=== PATIENT | female | born 1970 | race Caucasian/White ===

== ENCOUNTER 2024-12-22 15:22 | Emergency (ER) | payer OTHER, SELFPAY ==
[2024-12-22 15:38] VITALS: BP 117/78; PULSE 67; RESP 16; TEMP 36.1; O2SAT 98; BMI 28.6
[2024-12-22 16:55] LABS: Appearance Urine Clear (Clear); Bilirubin Urine Negative (Negative); Blood Urine Negative (Negative); Color Urine Light yellow (Yellow); Glucose Urine Negative (Negative); Ketones Urine Negative (Negative); Leukocyte Esterase Urine Negative (Negative); Nitrite Urine Negative (Negative); Protein Urine Negative (Negative); Urobilinogen Urine 0.2 (0.2-1.0)
[2024-12-22 17:03] LABS: RBC Urine 0-2 (0-2); WBC Urine 0-2 (0-5)
[2024-12-22 18:47] VITALS: BP 97/73; PULSE 62; RESP 16; O2SAT 97
--- NOTE | 2024-12-22 18:58 | CT_ITS ---
Patient: ASAEL SIBLEY Facility:?[facility] RIS Patient ID:?[id number] Site Patient ID:?[id number]. Site :?[id number] Study:?CT-Abdomen/Pelvis 81CC ISOVUE 370-12/22/2024 8:39:07 PM Ordering Physician:Nasreen Abernathy Final Report: Indication: Right lower quadrant pain Technique: CT through the abdomen and pelvis following 81 mL Isovue 370 IV contrast Comparison: None Findings: Lower chest: No acute abnormality appreciated. Hepatobiliary: No significant parenchymal abnormality is appreciated. Cholecystectomy. Spleen: Unremarkable. Pancreas: No acute abnormality appreciated. Adrenal glands: No acute abnormality appreciated. Kidneys: No significant parenchymal abnormality appreciated. No visualized calculi. No hydronephrosis. Bowel: No obstruction. No focal perienteric or pericolonic stranding is appreciated. The appendix is visualized and appears unremarkable. Vascular: No acute abnormality appreciated. Mild atherosclerosis. Lymph nodes: No gross lymphadenopathy. Peritoneum: No free air. No free fluid. : No acute abnormality appreciated. Soft tissues: No acute abnormality appreciated. Bones: No acute fracture. No lytic or blastic lesion. Mild spondylosis. Impression: No acute abnormality appreciated. Specifically, the appendix is visualized and appears unremarkable. Please note that all CT scans at this facility use dose modulation, iterative reconstruction, and/or weight-based dosing when appropriate to reduce radiation dose to as low as reasonably achievable. Dictated by Sylvester Seo MD @ 12/22/2024 9:11:11 PM Signed by:?Sylvester Seo MD @12/22/2024 9:11:11 PM (Electronic Signature)
[2024-12-22 19:18] LABS: Creatinine, Point-of-Care* 0.8 mg/dl (0.6-1.3)
[2024-12-22 19:22] LABS: Basophils Absolute Auto 0.04 K/uL (0.00-0.30); Basophils Percent Auto 0.4 % (0.0-3.0); Eosinophils Absolute Auto 0.17 K/uL (0.00-0.50); Eosinophils Percent Auto 1.6 % (0.0-7.0); Hematocrit 40.2 % (33.0-51.0); Hemoglobin* 13.7 gm/dL (12.0-16.0); Immature Granulocytes Abs Auto 0.05 K/uL (0.00-0.30); Immature Granulocytes Pct Auto 0.5 %; Lymphocytes Absolute Auto 2.81 K/uL (0.90-2.90); Lymphocytes Percent Auto 27.2 % (20-44); Mean Corpuscular HGB Conc 34 gm/dL (32-36); Mean Corpuscular Hemoglobin 31 pg (26-34); Mean Corpuscular Volume 91 fL (80-100); Monocytes Percent Auto 6.4 % (0.0-11.0); Neutrophils Percent Auto 63.9 % (42.0-72.0); Platelet Count* 236 K/uL (140-440); RDW Coefficient of Variation % 12.9 % (11.5-15.5); Red Blood Count 4.43 m/uL (4.00-5.20); White Blood Count* 10.33 K/uL (4.50-11.00)
[2024-12-22 19:23] LABS: Slide Review Reflex No
--- OUTSIDE RECORDS SUMMARY | 2024-12-22 19:37 | XMS_ITS | Data Portability ---
Author Organization [facility] Address [address] [place] [phone] Assessment No assessment recorded. Plan of Treatment Reminders Order Date Submit Date Provider Last Modified By Organization Details Last Modified Time Details Appointments None recorded. Lab None recorded. Referral None recorded. Procedures None recorded. Surgeries None recorded. Imaging None recorded. Medication Orders Augmentin 875 mg-125 mg tablet 2020 021 [id number], [address], [phone], 10:34:42 Patient TargetsNo targets recorded. Patient InstructionsNo instructions recorded. Reason for Referral None Reported. Results Created Date Observation Date Name Description Value Unit Range Abnormal Flag Note LastModifiedBy Organization Detail LastModifiedTime Result Notes None recorded. Procedures Surgical History Date Name Laterality Status Provider Name and Address Organization Details Recorded Time 09/02/19 21 laparoscopic cholecystectomy completed Elana Landin [facility] 09/14/2020 10:17:54 Imaging Results None recorded. Procedure Notes None recorded. Medical Equipment None Reported. Allergies No known drug allergies Medications Name Sig Start Date Stop Date Status Note LastModified by Organization Details LastModified Time amoxicillin 500 mg capsule 08/22 completed Not Available Not Available Not Available ibuprofen 800 mg tablet Take 1 tablet 3 times a day by oral route. active Not Available Not Available No t Available hydrocodone 5 mg-acetamin ophen 325 mg tablet TAKE 1 TO 2 TABLETS BY MOUTH EVERY 6 HOURS NEEDED FOR PAIN active Not Available Not Available No t Available penicillin V potassium 500 mg tablet TAKE 1 TABLET BY MOUTH 4 TIMES DAILY FOR 10 DAYS 08/22 completed Not Available Not Available Not Available ondansetron 8 mg disintegrat ing tablet DISSOLVE 1 TABLET IN MOUTH TWICE DAILY 08/22 completed Not Available Not Available Not Available hydrocodone 7.5 mg-acetamin ophen 325 mg tablet TAKE 1 TABLET BY MOUTH EVERY 6 HOURS FOR 3 DAYS NEEDED FOR PAIN 08/22 completed Not Available Not Available Not Available ondansetron 4 mg disintegrat ing tablet DISSOLVE 1 TABLET ON THE TONGUE EVERY 6 HOURS NEEDED active Not Available Not Available No t Available amoxicillin 875 mg-potassiu m clavulanate 125 mg tablet TAKE 1 TABLET BY MOUTH EVERY 12 HOURS FOR 10 DAYS active Not Available Not Available No t Available Vitals Date Recorded Body height Heart rate Respiratory rate Body temperature Oxygen saturation Oxygen saturation in Arterial blood by Pulse oximetry Systolic blood pressure Diastolic blood pressure Provider Name and Address Organization Details Last Updated DateTime 1 162.56 cm 88 /min 18 /min 97.2 [degF] 98 % 98 % 106 mm[Hg] 70 mm[Hg] Elana Landin [facility] 1 11:52:23 Date Recorded Body height Body mass index (BMI) Body weight Heart rate Respiratory rate Body temperature Oxygen saturation Oxygen saturation in Arterial blood by Pulse oximetry Systolic blood pressure Diastolic blood pressure Provider Name and Address Organization Details Last Updated DateTime 1 162.56 cm 28.3 kg/m2 10026.7 4 g 87 /min 16 /min 97.2 [degF] 97 % 97 % 128 mm[Hg] 74 mm[Hg] Elana Landin [facility] 1 10:21:08 Social History Question Answer Notes LastModified by Organizat ion Details LastModified Time Tobacco Smoking Status Current Every Day Smoker Elana Landin [facility] 08/22/2020 11:59:12 Hard Of Hearing Or Deaf In One Or Both Ears? No [email or web address] Information not available 08/22/2020 Legally Blind In One Or Both Eyes? No [email or web address] Information not available 08/22/2020 Live Alone Or With Others? With Others [email or web address] Information not available 08/22/2020 How Many Children Do You Have? 4 [email or web address] Information not available 08/22/2020 How Much Tobacco Do You Smoke? 1 PPD [email or web address] Information not available 08/22/2020 How Many Years Have You Smoked Tobacco? 37 Information not available 08/22/2020 Sex: Unknown Functional Status Question Answer Note LastModified by Organization D etails LastModified Time What is your level of alcohol consumption? None [email or web address] Information not available 08/22/2020 Are you able to walk? YESWOREST [email or web address] Information not available 08/22/2020 Are you able to care for yourself? Yes [email or web address] Information not available 08/22/2020 Mental Status None recorded. Family History Relationship Description Onset Age of this Age Resolved Age Notes LastModified by Organization Details LastModified Time Brother Diabetes mellitus [email or web address] Not available 2020 11:58:58 Mother Diabetes mellitus Not available 2020 11:58:58 Father Diabetes mellitus Not available 2020 11:58:58 Medical History No medical history recorded. Gynecological HistoryNo gynecological history recorded. Obstetrics History GPAL:G 0 P 0 0 0 0 Past Encounters Encounter ID Performer Location Encounter Start Date Encounter Closed Date Diagnosis/Indication Diagnosis SNOMED-CT Code Diagnosis ICD10 Code Diagnosis Note [id number] MD GABRIEL Andrade MD, GENERAL SURGERY [address] [place] [phone] 08/22/2020 11:06:28 08/22/2020 12:37:18 Cholelithiasis without obstruction 21443291 K80.20 I have recommende d laparoscop ic cholecyste ctomy to the patient. I do feel that her symptoms are typical of biliary colic. She would like to proceed, and [id number] MD GABRIEL Andrade MD, GENERAL SURGERY [address] [place] [phone] 09/14/2020 10:09:31 09/14/2020 10:38:55 Dental abscess [id number] K04.7 Cholelithi asis without obstruction [id number] K80.20 Patient is recovering well after laparoscop ic cholecyste ctomy. I will plan to see her back as needed for now. Health Concerns Section Related Observation LastModified by Organization Detai ls LastModified Time None Recorded Concern Status LastModified by Organization Details LastModified Time None Recorded Advance Directives Directive None Recorded Payers Insurance Date Sequence Insurance Name Policy Number Policy Euceda Covered Member ID Euceda Member ID Guarantor Name 09/11/2020 1 [place] ([facility]) [id number] Humza Perkins [id number] Perkins Notes Date Note Type Note Provider Name and Address Organization Details Recorded Time 08/22/2020 text/html the patient presents today for consideration of laparoscopic cholecystectomy. She says that she has been having near daily right upper quadrant pain. She says pain is usually brought on by eating. She has tried water diet, but this is not helping enough. She feels very bloated and full after eating. She did have CT a couple of years ago which showed gallstones. Gabriel Whitman MD [address] [place] [address], [phone] 11/23/2020 09:43:40 09/14/2020 text/html patient returns today in follow-up after recent laparoscopic cholecystectomy. She has no complaints related to the procedure and says that she could tell in almost immediate improvement in her abdominal symptoms. Her only complaint today is related to a dental abscess which she has associated with the broken 2 in the right upper central incisor location. She has been unable to get in with her dentist. Gabriel Whitman MD [address] [place] [address], [phone] 09/14/2020 16:26:55 OBGyn Episode No OBEpisode recorded.
--- OUTSIDE RECORDS SUMMARY | 2024-12-22 19:38 | XMS_ITS | Clinical Summary ---
Author Organization [facility] Address [address] [place] [address] Care Team Providers Care Room Attendant Name Role Phone None Reported, Pcp Primary Care Provider Unavail able Source Comments Patient records contain information from all sites at [facility]. For routine questions regarding patient records, call [phone] during business hours, M-F 8:00 AM - 5:00 PM Central Time. Record requests for emergency care only can be directed to [phone] at any time.[facility] Allergies No known active allergies Medications medical cannabis solution Take 1 each by mouth. Pt smokes medical marijuana Active Social History Tobacco Use Types Packs/Day Years Used Date Smoking Tobacco: Every Day Cigarettes Smokeless Tobacco: Never Tobacco Cessation:Ready to Q uit: Not Asked; Counseling Given: Yes Alcohol Use Standard Drinks/Week Comments Not Currently 0 (1 standard drink = 0.6 oz pur e alcohol) Comments No Sex and Gender Information Value Date Recorded Sex Assigned at Not on file Legal Sex Female 12:22 AM CDT Gender Identity Not on file Sexual Orientation Not on file Last Filed Vital Signs Vital Sign Reading Time Taken Comments Blood Pressure 116/77 08/25/2024 3:45 PM [employer]UMENT [employer]INE[employer] Pulse 56 08/25/2024 3:15 PM [employer]UMENT ENGINE[employer] Temperature 36.4 C (97.5 F) 08/25/2024 2:27 PM [employer]STRUMENT ENGINEER Respiratory Rate 20 08/25/2024 2:27 PM [employer]STRUMENT ENGINEER Oxygen Saturation 100% 08/25/2024 3:15 PM [employer] INSTRUMENT ENGINEER Inhaled Oxygen Concentration - - Weight 76.4 kg (168 lb 6.9 oz) 08/25/2024 2:29 P M [employer]STRUMENT ENGINEER Height - - Body Mass Index - - Plan of Treatment Health Maintenance Due Date Last Done Comments CT Colonography 1969 Cervical/Vaginal Cancer Screening 1970 Cologuard 1970 Colonoscopy 1969 Colorectal Cancer Screening 1969 FIT 1970 HIV Screening 1970 Hepatitis C Screening 1970 Lipid (Cholesterol) Screening 1969 Mammogram 1969 DTaP,Tdap,and Td Vaccines (1 - Tdap) 1988 Hepatitis B Vaccines (1 of 3 - 19+ 3-dose series) 1988 Pneumococcal vaccine (50+ years) (1 of 2 - PCV) 1988 Zoster Vaccines (1 of 2) 09/10/2019 COVID-19 Vaccine (1 - 2023-25 season) 2024 Influenza Vaccine (#1) 2024 Depression Screening (Annual PHQ-2) 06/30/2024 Tobacco Cessation counseling 07/16/2025 07/16/2024 Fasting Glucose for Diabetes Screening 07/20/2027 07/20/2024, 07/08/2024, 04/28/2024, Additional history exists IPV Vaccines Aged Out No longer eligi ble based on patient's age to complete this topic Procedures Procedure Name Priority Date/Time Associated Diagnosis Comments COMPREHENSIVE METABOLIC PANEL, S/P Routine 07/20/2024 8:39 AM ELECTRICAL AND INSTRUMENT ENGINEER Abdominal Pain from Last 3 Months or Most Recently Relevant to Health Maintenance Results * (ABNORMAL) Comprehensive Metabolic Panel (07/20/2024 8:39 AM ELECTRICAL AND INSTRUMENT ENGINEER) Potassium, P 4.5 3.6 - 5.2 mmol/L 07/20/2024 9:03 AM [employer]LECT[employer]ICAL [employer]STRUMENT ENGINE[employer] [facility] Sodium, P 141 135 - 145 mmol/L 07/20/2024 9:03 AM [employer]LECT[employer]STRUMENT ENG[employer] [facility] Chloride, P 106 98 - 107 mmol/L 07/20/2024 9:03 AM [employer]STRUMENT [employer] [facility] Bicarbonate, P 27 22 - 29 mmol/L 07/20/2024 9:03 AM ELECTRICAL AND INSTRUMENT ENGINE[employer] [facility] Anion Gap, P 8 7 - 15 07/20/2024 9:03 AM [employer] AND INSTRUMENT [employer] [facility] BUN (Blood Urea Nitrogen), P 11 6 - 21 mg/dL 07/20/2024 9:03 AM ELECT[employer] AND INSTRUMENT [employer] [facility] Creatinine 0.87 0.59 - 1.04 mg/dL 07/20/2024 9:03 AM [employer]LECT[employer] AND INSTRUMENT [employer] [facility] Estimated GFR (eGFR) 79 >=60 mL/min/BS A 07/20/2024 9:03 AM ELECT[employer]ICAL AND INSTRUMENT ENGINE[employer] [facility] Comment: Estimated GFR calculated using the 2020 CKD_EPI creatinine equation. Calcium, Total, P 9.5 8.6 - 10.0 mg/dL 07/20/2024 9:03 AM ELECT[employer] INSTRUMENT [employer] [facility] Glucose, P 100 70 - 140 mg/dL 07/20/2024 9:03 AM ELECTRICAL AND INSTRUMENT ENGINE[employer] [facility] Protein, Total, P 7.5 6.3 - 7.9 g/dL 07/20/2024 9:03 AM ELECT[employer]ICAL AND INSTRUMENT ENG[employer] [facility] Albumin, P 4.2 3.5 - 5.0 g/dL 07/20/2024 9:03 AM ELECT[employer]ICAL AND INSTRUMENT ENGINE[employer] [facility] Aspartate Aminotransferase (AST), P 40 8 - 43 U/L 07/20/2024 9:03 AM ELECTRICAL AND INSTRUMENT ENGINE[employer] [facility] Alkaline Phosphatase, P 88 35 - 104 U/L 07/20/2024 9:03 AM ELECT[employer] AND INSTRUMENT ENGINE[employer] [facility] Alanine Aminotransferase (ALT), P 50(H) 7 - 45 U/L 07/20/2024 9:03 AM ELECT[employer]ICAL AND INSTRUMENT ENGINE[employer] [facility] Bilirubin, Total, P 0.4 0.0 - 1.2 mg/dL 07/20/2024 9:03 AM ELECTRICAL AND INSTRUMENT ENGINE[employer] [facility] Blood (Blood, Venous) 07/20/2024 8:39 AM ELECTRICAL AND INSTRUMENT ENGINEER 07/20/2024 8:39 AM ELECTRICAL AND INSTRUMENT ENGINEER Brayan Calzada M.D. LAB BLOOD ADD-ON Fi nal Result [facility] [address] [place] [id number], [facility] [place] [address] [place] [id number] from Last 3 Months or Most Recently Relevant to Health Maintenance Insurance [employer] Care Teams Room Attendant Relationship Specialty Start Date End Date None Reported, Pcp PCP - General 05/07/24
[2024-12-22 19:40] LABS: Albumin* 4.1 g/dL (3.3-5.0); Chloride* 105 mmol/L (96-114); Sodium* 138 mmol/L (135-149)
[2024-12-22 19:43] LABS: Alanine Aminotransferase* 43 U/L (4-35); Alkaline Phosphatase* 63 U/L (40-150); Anion Gap 6 mEq/L (7-15); Aspartate Amino Transferase* 32 U/L (12-35); Bilirubin Total* 0.4 mg/dL (0.1-1.5); Blood Urea Nitrogen* 11 mg/dL (7-30); Carbon Dioxide* 27 mmol/L (20-32); Creatinine* 0.7 mg/dL (0.5-1.5); Est. Creatinine Clearance* 78.41; Estimated Glomerular Filt Rate 102 ml/min; Lipase* 131 U/L (23-300)
[2024-12-22 19:44] LABS: Calcium* 9.3 mg/dL (8.4-10.6); Glucose* 85 mg/dL (60-115)
[2024-12-22 20:01] LABS: Troponin I* < 0.01 ng/mL (0.01-0.04)
[2024-12-22 20:23] LABS: PCR FLU A Negative PCR FLU A (Negative); PCR FLU B Negative PCR FLU B (Negative); PCR RSV Negative PCR RSV (Negative); SARS PCR* Negative SARS-CoV-2 (Negative)
--- NOTE | 2024-12-22 20:49 | ED.ABDPAIN ---
HPI - Abdominal Pain General Date Seen: 12/22/24 Chief Complaint: Abdominal Pain Stated Complaint: R side abdominal pain Time Seen by Provider: 12/22/24 17:41 Source: patient Mode of arrival: ambulatory Limitations: no limitations History of Present Illness HPI narrative: Patient is a 54-year-old female presenting to the emergency department for right-sided abdominal pain. Symptoms have been on and for the past month. States there is some pressure to right abdomen. Initially seem to be in the right upper quadrant but now seems worse in the right lower quadrant. Denies any pain at this time but feels like her abdomen is full of water. States this sensation comes and goes. Has been having and some hot flashes but has not had any objective fevers. Has had multiple previous abdominal surgeries. Has been having normal bowel movements today and been passing gas. Has not had any diarrhea. Denies any nausea or vomiting. Denies any dysuria. Has been seeing her primary care provider for generalized abdominal pain for few months now and has been told she may need to follow-up with GI. Was also having some chest pain and shortness of breath when the pain was at its worst. Currently is not having any chest pain or shortness of breath. No other concerns noted Related Data Home Medications ?Medication ?Instructions ?Recorded ?Confirmed No Known Home Medications 12/22/24 12/22/24 Allergies Allergy/AdvReac Type Severity Reaction Status Date / Time No Known Drug Allergies Allergy Verified 12/22/24 15:38 Review of Systems Status of ROS Reports: 10 or more systems reviewed and unremarkable except as noted in History and below [facility] Social History Smoking Status: Never smoker How often do you have a drink containing alcohol: never AUDIT-C Alcohol total score: 0 Non-prescribed substance use: marijuana (any form) Non-prescribed substance use details: medical marijuana use Exam Narrative: Exam Narrative: Const: Well-nourished, Well-developed, in mild distress Eyes: PERRL, no conjunctival injection, and symmetrical lids HENT: Atraumatic external nose and ears. Moist mucous membranes. Neck: Symmetric, trachea midline, No thyromegaly. CVS: RRR, No murmurs or gallops. Peripheral pulses 2+ and equal in all extremities RESP: Unlabored respiratory effort. Clear to auscultation bilaterally. GI: Nontender/Nondistended, No rebound or guarding. MSK:Extremities w/o deformity, Normal Active ROM Skin: Warm, Dry. No rashes or lesions. Neuro: Normal Muscle tone, No focal neurological deficits. Psych: Awake, Alert, & Oriented x3. Appropriate mood and affect. Const: Vital Signs, click to edit/add: Vital Signs - 24 hr 12/22/24 15:38 12/22/24 18:47 Temperature 96.9 F L Pulse Rate [Pulse Oximeter] 67 62 Respiratory Rate 16 16 Blood Pressure [[facility] Upper Arm] 117/78 97/73 Pulse Oximetry 98 97 Oxygen Delivery Me thod Room Air Room Air Course Vital Signs Vital signs: Initial Vital Signs Temperature 96.9 F L 12/22/24 15:38 Temperature Source Temporal Artery Scan 12/22/24 15:38 Pulse Rate 67 12/22/24 15:38 Pulse Rhythm Regular 12/22/24 15:38 Respiratory Rate 16 12/22/24 15:38 Blood Pressure 117/78 12/22/24 15:38 Blood Pressure Mean 91 12/22/24 15:38 Blood Pressure Position Sitting 12/22/24 15:38 Pulse Oximetry 98 12/22/24 15:38 Oxygen Delivery Method Room Air 12/22/24 15:38 Vital Signs Temperature 96.9 F L 12/22/24 15:38 Pulse Rate 67 12/22/24 15:38 Respiratory Rate 16 12/22/24 15:38 Blood Pressure 117/78 12/22/24 15:38 Pulse Oximetry 98 12/22/24 15:38 Oxygen Delivery Method Room Air 12/22/24 15:38 Temperature 96.9 F L 12/22/24 15:38 Pulse Rate 62 12/22/24 18:47 Respiratory Rate 16 12/22/24 18:47 Blood Pressure 97/73 12/22/24 18:47 Pulse Oximetry 97 12/22/24 18:47 Oxygen Delivery Method Room Air 12/22/24 18:47 MDM - Abdominal Pain MDM Narrative Medical decision making narrative: Patient is 54-year-old female presenting for abdominal pain. Is currently asymptomatic but not feeling well overall. Will do a broad workup including CBC, CMP, lipase, COVID/flu/RSV and a CT scan with IV contrast to better evaluate all her possible issues. With the symptoms this could be an uncommon presentation of coronary artery disease I will order an EKG and troponin also. Has had multiple surgeries so I am concerning SBO but seems less likely considering she is not having any constipation. Will check a lipase for signs of pancreatitis. Lab work all returned showing no acute concerning abnormalities. EKG shows no acute concerning findings. Troponin within normal limits and considering length the symptoms do not believe repeat troponin is necessary. CT scan read was delayed due to issues with the client server developer that was knocked out by weather. Eventually were able to get the CT scan results and shows no acute concerning abnormalities. Patient continues to be stable and will be discharged. Lab Data Labs: Lab Results 12/22/24 12/22/24 12/22/24 Range/Units 18:58 19:10 Unknown WBC 10.33 (4.50-11.00) K/uL RBC 4.43 (4.00-5.20) m/uL Hgb 13.7 (12.0-16.0) gm/dL Hct 40.2 (33.0-51.0) % MCV 91 (80-100) fL MCH 31 (26-34) pg MCHC 34 (32-36) gm/dL RDW Coeff of Rob 12.9 (11.5-15.5) % Plt Count 236 (140-440) K/uL Neut % (Auto) 63.9 (42.0-72.0) % Lymph % (Auto) 27.2 (20-44) % Bleck[place] % (Auto) 6.4 (0.0-11.0) % Eos % (Auto) 1.6 (0.0-7.0) % Baso % (Auto) 0.4 (0.0-3.0) % Neut # (Auto) 6.60 (1.7-7.0) K/uL Lymph # (Auto) 2.81 (0.90-2.90) K/uL Bleckley # (Auto) 0.70 (0.00-0.90) K/UL Eos # (Auto) 0.17 (0.00-0.50) K/uL Baso # (Auto) 0.04 (0.00-0.30) K/uL Abs Immat Gran (auto) 0.05 (0.00-0.30) K/uL Imm/Tot Granulo (auto) 0.5 % Sodium 138 (135-149) mmol/L Potassium 4.0 (3.6-5.1) mmol/L Chloride 105 (96-114) mmol/L Carbon Dioxide 27 (20-32) mmol/L Anion Gap 6 L (7-15) mEq/L BUN 11 (7-30) mg/dL Creatinine 0.7 (0.5-1.5) mg/dL Estimated Creat Clear 78.41 Estimated GFR 102 ml/min Glucose 85 (60-115) mg/dL Calcium 9.3 (8.4-10.6) mg/dL Total Bilirubin 0.4 (0.1-1.5) mg/dL AST 32 (12-35) U/L ALT 43 H (4-35) U/L Alkaline Phosphatase 63 (40-150) U/L Troponin I < 0.01 (0.01-0.04) ng/mL Total Protein 7.0 (6.0-8.3) g/dL Albumin 4.1 (3.3-5.0) g/dL Lipase 131 (23-300) U/L Urine Color Light yellow (Yellow) Urine Appearance Clear (Clear) Urine pH 7.0 (5.0-8.5) Ur Specific [place] 1.010 (1.000-1.030) Urine Protein Negative (Negative) Urine Glucose (UA) Negative (Negative) Urine Ketones Negative (Negative) Urine Blood Negative (Negative) Urine Nitrite Negative (Negative) Urine Bilirubin Negative (Negative) Urine Urobilinogen 0.2 (0.2-1.0) Ur Leukocyte Esterase Negative (Negative) Urine RBC 0-2 (0-2) Urine WBC 0-2 (0-5) Ur Squamous Epith Cells None (None-Few) Urine Bacteria None (None) SARS-CoV-2 (PCR) Negative SARS-CoV-2 (Negative) Influenza Type A (PCR) Negative PCR FLU A (Negative) Influenza Type B (PCR) Negative PCR FLU B (Negative) RSV (PCR) Negative PCR RSV (Negative) POC Creatinine 0.8 (0.6-1.3) mg/dl Imaging Data CT scan abdomen pelvis: Attestation: I have reviewed the pertinent imaging results. Radiologist's impression: No acute abnormality appreciated. Specifically, the appendix is visualized and appears unremarkable. Please note that all CT scans at this facility use dose modulation, iterative reconstruction, and/or weight-based dosing when appropriate to reduce radiation dose to as low as reasonably achievable. Dictated by Sylvester Seo MD @ 12/22/2024 9:11:11 PM ECG Data Attestation: I personally reviewed and interpreted this ECG as follows: Prior ECG tracings: available for review Interpretation: Sinus bradycardia with rate 56 beats per minute, first-degree AV block, normal QRS, normal axis, no ST or T-wave abnormalities. Discharge Plan Discharge Clinical Impression: Abdominal pain Qualifiers: Abdominal location: unspecified location Qualified Code(s): R10.9 - Unspecified abdominal pain Patient Disposition: Home, Self-Care Condition: Stable Instructions: Abdominal Pain (ED) Additional Instructions: I do not know exactly what is causing your pain at this time but I do not see any emergent issues. I recommend following up with the primary care provider and possibly get a referral for GI. Return to emergency department for new or worsening symptoms Prescriptions: No Action No Known Home Medications Follow Up/Referrals: Provider,Not a Local [Primary Care Provider, Family Practice] Stand Alone Forms: [employer] Info Instructions
[2024-12-22 21:30] VITALS: BP 115/81; PULSE 59; RESP 16; TEMP 36.2; O2SAT 97
== END 2024-12-22 21:36 | disposition home or self-care (01) ==
PROVIDERS: Emergency Provider Student in an Organized Health Care Education/Training Program
DX: R10.11 Right upper quadrant pain (principal)
CPT/HCPCS: 36415; 74177; 80053; 81001; 82565; 83690; 84484; 85025; 87631; 93005; 99284; 99285; Q9967